=== PATIENT | female | born 2000 | race African-American/Black ===

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

== ENCOUNTER 2021-04-21 22:03 | Emergency (ER) | payer MEDICAID ==
[~2021-04-21] VITALS: Ht 167.6 cm; Wt 55.0 kg
[2021-04-21] MEDS ORDERED: KETOROLAC 60MG/2ML VIAL IM ONE (23:15)
[2021-04-21] MEDS ORDERED: TETRACAINE 0.5% OPHTH DROPS 4ML BOTHEYE ONE (23:30)
[2021-04-21] MEDS ORDERED: VISCOUS LIDOCAINE 2% 15 ML UDC MM PRN (23:30)
[2021-04-21] MEDS ORDERED: FLUORESCEIN SODIUM 1MG/STRIP BOTHEYE ONE (23:30)
[2021-04-21 23:48] VITALS: BP 114/78
[2021-04-22] MEDS ORDERED: BENZ1LOZ60 MT (00:28)
[2021-04-22] MEDS ORDERED: NAPHADR EACHEYE (00:28)
[2021-04-22] MEDS ORDERED: TOPUD MT (00:28)
== END 2021-04-22 01:13 | disposition home or self-care (01) ==
LOC: ER 22:03
DX: J04.0 Acute laryngitis (principal); Z91.011 Allergy to milk products; Z91.09 Other allergy status, other than to drugs and biological substances
CPT/HCPCS: 81025; 87070; 87430; 96372; 99283; J1885